=== PATIENT | female | born 1985 | race Caucasian/White ===

== ENCOUNTER 2022-07-15 12:57 | Emergency (ER) | payer OTHER, SELFPAY ==
[2022-07-15 13:08] VITALS: BP 138/78; PULSE 97; RESP 16; TEMP 36.6; O2SAT 98
--- NOTE | 2022-07-15 13:16 | ED.URI ---
HPI - URI/Sore Throat General Chief Complaint: Upper Respiratory Infection Stated Complaint: Sinus Congestion Time Seen by Provider: 07/15/22 13:16 Source: patient and RN notes reviewed Mode of arrival: ambulatory Limitations: no limitations History of Present Illness HPI Narrative: 37-year-old female presents with concern for sore throat, ear pain and sinus congestion that started yesterday. Reports her was diagnosed with strep throat yesterday. She denies fever, aches, chills, sweats. Reports she had a stomachache yesterday. MD elicited complaint: sore throat and nasal congestion Related Data Allergies Allergy/AdvReac Type Severity Reaction Status Date / Time No Known Allergies Allergy Verified 07/15/22 13:22 Review of Systems Review of Systems: CONSTITUTIONAL: Reports malaise. Denies chills, sweats, or fever. EYES: Denies visual changes, redness, or discharge. ENT: Reports rhinorrhea, congestion, sore throat. Denies sinus pain, otalgia CARDIOVASCULAR: Denies chest pain, palpitations, or edema. RESPIRATORY: Denies cough. Denies dyspnea. GASTROINTESTINAL: Denies abdominal pain, nausea, vomiting, diarrhea. Reports stomach ache SKIN: Denies rash or itching. MUSCULOSKELETAL: Denies myalgia. NEUROLOGIC: Denies headache. All systems reviewed & are unremarkable except as noted in HPI and below PMFSH Comments At time of signature, agree with nursing past medical, surgical, social and family history. There is no relevant family history pertinent to the presenting complaint Exam Narrative: GENERAL: Well-appearing, well-nourished, and in no acute distress. HEAD: Normocephalic EYES: PERRLA, conjunctivae clear ENT: Nares clear, turbinates edematous and erythematous, clear discharge. Mucous membranes moist. TM pearly rutherford with dull light reflex bilaterally; no tragal tenderness. Oropharynx erythematous without lesions. Tonsils enlarged and without exudate, no drooling, no hoarseness, no trismus, uvula midline. NECK: Supple. No lymphadenopathy CHEST: Clear to auscultation, breath sounds equal. No wheezing, rhonchi, rales, or stridor. No respiratory distress, speaks in full sentences. HEART: Regular rate and rhythm. No murmur heard. SKIN: Warm, dry, no rash. NEURO: Alert and oriented x3. PSYCH: Normal mood and affect Course Course Emergency Course: Patient is aware of diagnosis, understands and agrees to treatment plan. Anticipatory guidance given. Patient agrees to follow-up as directed and is aware of reasons to seek care at the emergency department. Portions of this record may have been created with voice recognition software Level of Care: Express Care Visit Vital Signs Vital signs: Vital Signs Temperature 97.8 F 07/15/22 13:08 Pulse Rate 97 07/15/22 13:08 Respiratory Rate 16 07/15/22 13:08 Blood Pressure 138/78 07/15/22 13:08 Pulse Oximetry 98 07/15/22 13:08 Oxygen Delivery Room Air 07/15/22 13:08 Temperature 97.8 F 07/15/22 13:08 Pulse Rate 97 07/15/22 13:08 Respiratory Rate 16 07/15/22 13:08 Blood Pressure 138/78 07/15/22 13:08 Pulse Oximetry 98 07/15/22 13:08 Oxygen Delivery Room Air 07/15/22 13:08 Reviewed. MDM - URI/Sore Throat MDM Narrative Medical decision making narrative: Differential diagnosis considered: Thayer virus, strep pharyngitis, allergic rhinitis, upper respiratory tract infection, sinusitis, rhinosinusitis, nasopharyngitis. viral pharyngitis, otitis media, otitis externa, pneumonia, bronchitis, viral cough syndrome, viral syndrome, and influenza. Exam findings show no acute concerns or changes; patient is non-toxic appearing and is in no distress. Patient is appropriate for outpatient treatment and follow-up. Lab Data Attestation: I reviewed the patient's lab results. Critical Care Time Critical Care Time Critical Care Time: No Discharge Plan Discharge Clinical Impression: Pharyngitis, Exposure to strep throat Patient Dispos
== END 2022-07-15 13:37 | disposition home or self-care (01) ==
PROVIDERS: Emergency Provider Nurse Practitioner; PCP Family Medicine
DX: J02.9 Acute pharyngitis, unspecified (principal); Z20.818 Contact with and (suspected) exposure to other bacterial communicable diseases
CPT/HCPCS: 87081; 87880; 99213; G0463

== ENCOUNTER 2023-02-03 16:24 | Emergency (ER) | payer OTHER, SELFPAY ==
[2023-02-03 16:30] VITALS: BP 151/104; PULSE 89; RESP 20; TEMP 37.3; O2SAT 100
--- NOTE | 2023-02-03 16:34 | ED.URI ---
HPI - URI/Sore Throat General Chief Complaint: Upper Respiratory Infection Stated Complaint: swelling/tender around neck Time Seen by Provider: 02/03/23 16:34 Source: patient, RN notes reviewed and old records reviewed Mode of arrival: ambulatory Limitations: no limitations History of Present Illness HPI Narrative: 37 year old female who presents to express care with complaints of feeling a lump in her throat with tenderness.Patient states that it doesn't feel like it is on the inside of her throat and denies any sore throat, sinus drainage or any known fevers. Patient reports that it feels funny with swallowing. Patient indicates that lump is in her anterior neck in area of thyroid gland with palpable swelling and tenderness of left side of thyroid region. Patient reports no thyroid problems in the past. Patient reports that she called her doctor's office and the soonest she could be seen is in March. Patient reports that she has been able to eat and drink, has not experienced any MD elicited complaint: other (left anterior neck swelling and tenderness) Onset (ago): day(s) (2-3 days) Pain scale (0-10): 3 Able to tolerate fluids by mouth: Yes Treatments prior to arrival: none Related Data Allergies Allergy/AdvReac Type Severity Reaction Status Date / Time No Known Allergies Allergy Verified 07/15/22 13:22 Review of Systems Review of Systems: CONSTITUTIONAL: Denies fever, chills, or sweats. EYES: Denies visual changes, redness, or discharge. ENT: Denies rhinorrhea, congestion, sore throat, or otalgia.reports swelling and tenderness to left anterior neck with discomfort CARDIOVASCULAR: Denies chest pain, palpitations, or edema. RESPIRATORY: Denies cough or dyspnea. GASTROINTESTINAL: Denies abdominal pain, nausea, vomiting, or diarrhea. GENITOURINARY: Denies dysuria or hematuria. SKIN: Denies rash or itching. MUSCULOSKELETAL: Denies back pain, joint pain, or myalgia. NEUROLOGIC: Denies headache, numbness, or weakness. PSYCHIATRIC: Denies anxiety or depression. All systems reviewed & are unremarkable except as noted in HPI and below [facility] Social History Social History (Updated 02/04/23 @ 11:12 by Sara Hammond NP) Living arrangements: with family Gender identity (if verbalized by the patient): Female Comments At time of signature, agree with nursing past medical, surgical, social and family history. There is no relevant family history pertinent to the presenting complaint Exam Narrative: GENERAL: Well-appearing, well-nourished, and in no acute distress. HEAD: Normocephalic, atraumatic. EYES: PERRLA and EOMI. ENT: Nares clear, no rhinorrhea or epistaxis. Mucous membranes moist.TM's normal throat pink with no lesions or exudates. NECK: Supple. fullness of left side of thyroid gland noted with tenderness on palpation CHEST: Clear to auscultation. No respiratory distress.SAO2 100% on room air HEART: Regular rate and rhythm. No murmur heard. Normal peripheral pulses. ABDOMEN: Soft, nontender, nondistended, normal active bowel sounds. EXTREMITIES: Normal range of motion. No edema. SKIN: Warm, dry, no rash. NEURO: No focal deficits. Alert and oriented x3. Course Course Emergency Course: Patient is aware of diagnosis, understands and agrees to treatment plan.? Anticipatory guidance given.? Patient agrees to follow-up as directed and is aware of reasons to seek care at the emergency department. Portions of this record may have been created with voice recognition software Level of Care: Express Care Visit Vital Signs Vital signs: Vital Signs Temperature 37.3 C 02/03/23 16:30 Pulse Rate 89 02/03/23 16:30 Respiratory Rate 02/03/23 16:30 Blood Pressure 151/104 H 02/03/23 16:30 Pulse Oximetry 100 02/03/23 16:30 Oxygen Delivery Room Air 02/03/23 16:30 Temperature 37.3 C 02/03/23 16:30 Pulse Rate 89 02/03/23 16:30 Respiratory Rate 02/03/23 16:30 Blood Pressure 128/84 /
[2023-02-03 16:40] VITALS: BP 128/84
== END 2023-02-03 17:04 | disposition home or self-care (01) ==
PROVIDERS: Emergency Provider Registered Nurse; PCP Family Medicine
DX: E04.9 Nontoxic goiter, unspecified (principal)
CPT/HCPCS: 99211; G0463

== ENCOUNTER 2024-09-17 08:52 | Emergency (ER) | payer OTHER, SELFPAY ==
--- OUTSIDE RECORDS SUMMARY | 2024-09-17 08:57 | XMS_ITS | Clinical Summary ---
Author Organization [facility] [address] Address [address] [place] [address] Phone Care Team Providers Care Clinical Transplant Coordinator Name Role Phone Tevin Jarvis MD Primary Care Provider [phone] Allergies No known active allergies Medications sertraline (ZOLOFT) 50 mg tablet Take 1 tablet (50 mg total) by mouth daily 90 tablet 1 3 Active Additional Information Patient not taking.Reported on 05/15/2024 busPIRone (BUSPAR) 5 mg tabletIndicatio ns:Anxiety Take 1 tablet (5 mg total) by mouth 2 (two) times a day as needed (anxiety) 60 tablet 2 3 Active triamcinolone (KENALOG) 0.1 % cream Apply to affected area 1-2 times daily as needed. Avoid face and groin. 80 g 5 4 Active Additional Information Patient not taking.Reported on 05/15/2024 tacrolimus (PROTOPIC) 0.1 % ointment Apply topically 2 (two) times a day Active clobetasoL (TEMOVATE) 0.05 % cream Apply topically 2 (two) times a day Active spironolactone (ALDACTONE) 100 mg tablet Take 1 tablet (100 mg total) by mouth daily Active Active Problems Problem Noted Date Diagnosed Date Annual physical exam 05/15/2024 Assessment & Plan (05/15/2024 4:13 PM SOCK LINING STITCHER): In regard to health maintenance, Mammogram utd WWE utd Eat a healthy diet: focus on lean meats and proteins, more fruits, vegetables and whole grains and low in sugars and fats. Limit red meat and avoid processed meat. Maintain a healthy weight; avoid being overweight. Aim for a normal body mass index (BMI) of 18.5-24.9. Help learning to eat healthier, we can set up appointment with supervisor lamp shades/retirement specialist. Have an active lifestyle, strive for 30 minutes of moderate exercise 5 times a week and strength or resistance training at least twice a week. Use broad-spectrum (UVA+UVB) sunscreen with SPF 30 or greater, is water resistant, limit time spent in the sun (10 am-4pm), wear hat, wear UV protective clothing, wear sunglasses. Never use a tanning bed. Skin that was irradiated may be more sensitive over your lifetime. Do not smoke or chew tobacco; participate in a smoking cessation program. Limit alcohol intake, 1 drink per day for a woman and 2 drinks per day for a man. Eczema 05/12/2023 Assessment & Plan (05/15/2024 4:34 PM SOCK LINING STITCHER): Improving with clobetasol, tacrolimus. Continue following with Dermatology. Assessment & Plan (05/12/2023 3:24 PM SOCK LINING STITCHER): Will initiate Medrol Dosepak and also send in triamcinolone cream to use thereafter. Continue with excellent moisturization. Will place referral to Dermatology to schedule if not improving. RTC for any signs of secondary infection. Class 2 severe obesity due t o excess calories with serious comorbidity and body mass index (BMI) of 37.0 to 37.9 in adult 05/12/2023 Enlarged thyroid gland 04/22/2023 Thyroid pain 04/22/2023 Thyroid nodule 03/16/2023 Assessment & Plan (03/21/2024 3:42 PM SOCK LINING STITCHER): Very significantly shrunk, as per ultrasound done today Follow-up in 2 3 years recommended Update TSH Assessment & Plan (05/12/2023 3:23 PM SOCK LINING STITCHER): Benign biopsy. Monitor for any changes. Continue following with endocrinology. Red flags reviewed. Assessment & Plan (03/16/2023 3:52 PM SOCK LINING STITCHER): I looked at Mrs. Albarran thyroid under our ultrasound machine. She has a left-sided 2.5 cm nodule, again mixed, with some solid component, probably with some microcalcifications. The right side of the thyroid looks very normal as well as the isthmus I explained to the patient that she probably had bleeding into a left thyroid cyst that caused the initial tenderness, now subsided . She has indication for an FNA biopsy. The patient has agreed and she is scheduled Refused influenza vaccine 04/14/2021 Class 2 obesity due to exces s calories without serious comorbidity with body mass index (BMI) of 37.0 to 37.9 in adult 04/14/2021 Assessment & Plan (04/14/2021 5:39 PM SOCK LINING STITCHER): Discussed healthy diet and importance of regular physical activity. Strain of groin, right, initial encounter 2020 Assessment & Plan (04/14/2021 5:38 PM SOCK LINING STITCHER): Pain is mild, no abnormal findings on exam. Will continue to monitor. Patient agreeable to watchful waiting, will notify office if pain worsens or does not improve, will plan for US. Encounter for screening for lipid disorder 04/14 Assessment & Plan (04/14/2021 5:40 PM SOCK LINING STITCHER): Will check fasting labs. Anxiety disorder 12/12/2020 Assessment & Plan (05/12/2023 3:23 PM SOCK LINING STITCHER): Reports currently stable without medication treatment. Will continue to monitor. Assessment & Plan (04/14/2021 5:40 PM SOCK LINING STITCHER): Worsening; sertraline increased. Discussed increasing buspirone to 10mg BID if tolerated.Reviewed med Ses & scheduling. Reviewed red flags. Obesity with body mass index 30 or greater 08/07 Overview (08/11/2016): BMI 30+ - obesity Rhinitis 06/25/2014 Overview (08/12/2016): Rhinitis Polycystic ovaries 09/22/2013 Overview (08/11/2016): PCO (polycystic ovaries) Depression 04/03/2013 Overview (08/12/2016): Depression Resolved Problems Problem Noted Date Diagnosed Date Resolved Date Pharyngitis 04/22/2023 04/22/2023 Immunizations Immunization Administration Dates Next Due HPV, Quadrivalent 03/11/2011,11/17/2010,09/17/19 11 Influenza, Unspecified 05/15/2024(Deferr ed: Patient Refused),02/09/2023(Deferred: Patient Refused),02/09/2023(Deferred: Patient Refused),02/01/2022(Deferred: Patient Refused),05/22/2021(Deferred: Patient Refused),01/07/2021(Deferred: Patient Refused),09/09/2020(Deferred: Patient Refused),03/11/2020(Deferred: Patient Refused),05/09/2019(Deferred: Patient Refused),05/09/2019(Deferred: Patient Refused) [employer] ([employer]) SARS-CoV-2 Vaccination 07/17/2020 Moderna SARS-CoV-2 Monovalen t Vaccination (12+ YRS) 2021 Pfizer Sars-Cov-2 Bivalent Vaccination (12+ YRS) 02/27/2022 Tdap 09/16/2010 Surgical History Surgery Date Site/Laterality Comments WISDOM TOOTH EXTRACTION 05/09/2001 - 05/08/2002 Medical History Medical History Date Comments GERD (gastroesophageal reflux disease) Smoking previous smoker Pharyngitis 04/22/2023 Family History Medical History Relation Name Comments Hypertension Father Hema 'Reginald' Rowley Hypertension ; Coronary artery disease Maternal Grandfather Dereje tomlinson sr Coronary artery disease, premature; Cause of : Coronary artery disease, premature Heart attack Maternal Grandfather Dereje Piedra sr Diabetes Maternal Grandmother Betsy Tadeo Diabetes type II Maternal Grandmother Betsy Tadeo Breast cancer Mother Diabetes type II Paternal Grandfather Bucky Rowley Hypertension Paternal Grandfather Bucky Rowley Relation Name Status Comments Brother 1 Alive Brother 2 Father Hema 'Reginald' Rowley Alive Maternal Grandfather Dereje Piedra sr (Age 65) Maternal Grandmother Betsy Piedra Mother Alive Paternal Grandfather Bucky Rowley Social History Tobacco Use Types Packs/Day Years Used Date Smoking Tobacco: Former Cigarettes 0.5 18 0 05/09/1999 - 05/09/2017 E-cigarettes Smokeless Tobacco: Never Tobacco Cessation:Counseling Given: Not Answered Comments:Smoking History Packs/day: 0.5 Packs Alcohol Use Standard Drinks/Week Comments Yes 0 (1 standard drink = 0.6 oz pur e alcohol) AUDIT-C Answer Date Recorded Q1: How often do you have a drink containing alcohol? Never 03/21/2024 Q2: How many drinks containi ng alcohol do you have on a typical day when you are drinking? Patient does not drink Q3: How often do you have si x or more drinks on one occasion? 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 Not on file Not on file Obstetrics History Para Term AB IAB SAB Ectopic Multiple Livin g Live Births 0 0 0 0 0 0 0 0 0 0 0 Last Filed Vital Signs Vital Sign Reading Time Taken Comments Blood Pressure 124/78 05/15/2024 3:48 PM SOCK LINING STITCHER Pulse 91 05/15/2024 3:48 PM SOCK LINING STITCHER Temperature 36.3 C (97.4 F) 05/15/2024 3:48 PM SOCK LINING STITCHER Respiratory Rate 20 05/15/2024 3:48 PM SOCK LINING STITCHER Oxygen Saturation 99% 05/15/2024 3:48 PM SOCK LINING STITCHER Inhaled Oxygen Concentration - - Weight 102 kg (224 lb 12.8 oz) 05/15/2024 3:48 P M SOCK LINING STITCHER Height 162.6 cm (5' 4.02 ) 05/15/2024 3:48 PM CS T Body Mass Index 38.57 05/15/2024 3:48 PM SOCK LINING STITCHER Plan of Treatment Health Maintenance Due Date Last Done Comments Hepatitis C Screening 1985 Hepatitis B Screening 2003 DTaP/Tdap/Td Vaccine (2 - Td or Tdap) 09/16/2020 09/16/2010 Cervical Cancer Screening 12/12/2021 12/12/2020 Covid-19 Vaccine ( season) 2024 02/27/2022, 2021, 07/17/2020 Influenza Vaccine (#1) 2024 Postp oned from 01/08/2024 (Patient declined, but will receive in the future) Depression Screening 05/15/2025 05/15/2024, 03/21/2024, 03/16/2023, Additional history exists Regular Well Visit/Exam 18-64 05/15/2025 05/15/2024, 01/06/2024, 12/24/2022, Additional history exists HPV Vaccines Completed 03/11/2011, 11/06, 09/16/2010 Pneumococcal vaccine <65 Aged Out No longer eligible based on patient's age to complete this topic Varicella Vaccines Discontinued Procedures Procedure Name Priority Date/Time Associated Diagnosis Comments IMAGING PAP AND HPV MRNA E6/E7 Routine 12/12/2020 12:00 AM CDT from Last 3 Months or Most Recently Relevant to Health Maintenance Results * Imaging Pap and HPV mRNA E6/E7 (12/12/2020 12:00 AM CDT) CLINICAL INFORMATION: [employer] [facility] Comment[facility]22/20 Previous Pap [employer] [facility] Comment:YES Prev. Bx [employer] [facility] Comment:INFORMATION NOT PROV IDED SOURCE: [employer] [facility] Comment:Cervix, Endocervix Pap, specimen adequacy [employer] [facility] Comment: Satisfactory for evaluation. Endocervical/transformation zone component absent. HPV interp [employer] [facility] Comment:Negative for intraep ithelial lesion or malignancy. COMMENTS [employer] [facility] Comment: This Pap test has been evaluated with computer assisted technology. Software Validation Technician [employer] [facility] Comment: BEF, CT(ASCP) CT screening location: [place] [address] [place] [address] Comment [employer] [facility] Comment: EXPLANATORY NOTE: The Pap is a screening test for cervical cancer. It is not a diagnostic test and is subject to false negative and false positive results. It is most reliable when a satisfactory sample, regularly obtained, is submitted with relevant clinical findings and history, and when the Pap result is evaluated along with historic and current clinical information. Human papillomavirus RNA, High Risk E6/E7 Not Detected Not Detected [employer] Comment: Methodology: Farmer [employer]-Mediated Amplification This assay detects E6/E7 viral messenger RNA (mRNA) from 14 high-risk HPV types (16,18,31,33,35,39,45,51,52,56,58,59,66,68). The analytical performance characteristics of this assay have been determined by [employer]. The modifications have not been cleared or approved by the FDA. This assay has been validated pursuant to the CLIA regulations and is used for clinical purposes. For additional information, please refer to http://education.Who-Sells-it.com/faq/VOD546d4 (This link if provided for information/ educational purposes only.) 12/12/2020 12/15/2020 11: 00 AM CDT Narrative [facility] - 12/16/2020 1:00 PM CDT FASTING: UNKNOWN Hanh Ivan MD LAB PATHOLOGY ORDERAB LES Final Result [facility] [address] [place] [address] [employer] [address] [place] [address] from Last 3 Months or Most Recently Relevant to Health Maintenance Insurance [facility]PPO Address: [address] [place] [address] [facility] CHOICE PLUS COMMERCIAL GENERIC [facility] CHOICE PLUS Care Teams Clinical Transplant Coordinator Relationship Specialty Start Date End Date Tevin Jarvis MD [address] [place] [address] PCP - General Family Medicine 03/11/20
--- OUTSIDE RECORDS SUMMARY | 2024-09-17 08:57 | XMS_ITS | Patient Health Record ---
Author Organization [facility] Address [address] [place] [address] Care Team Providers Care Engine Assembly Supervisor Name Role Phone Mariaa FRY, Beata Primary Care Provider Betina CarrollCarisa Unavailable [phone] Allergies No Known Allergies Reason For Referral No Information Medications Medication SIG (Take, Route, Fr equency, Duration) Notes Start Date End Date Status Omeprazole 20 MG take 1 capsule (20 m g) by oral route once daily before a meal Oral 1 Active Sertraline HCl 50 MG take 1 tablet (50 m g) by oral route once daily Oral 1 Active busPIRone HCl 5 MG take 1 tablet (5 mg) by oral route 2 times per day Oral 2 Act bella Plan Of Treatment No Information Insurance Providers Payer Name Payer Address Payer Phone Subscriber Number Group Number Insured Name Patient Relationship to Insured Coverage Start Date Coverage End Date DO NOT USE- use ins id# [id number] Lana Albarran Self - patient is the insured Medical (General) History Surgical History Surgery Date(Month/Year) [place] Tooth Extraction; 2021-06-09
--- OUTSIDE RECORDS SUMMARY | 2024-09-17 08:57 | XMS_ITS | Referral Summary ---
Author Organization [facility] [employer] Address [address] [place] [address] Phone Care Team Providers Care Mobile Designer Name Role Phone Tevin Jarvis MD Primary Care Provider [phone] Allergies No known active allergies Medications sertraline [...] 05/15/2024 Assessment & Plan (05/15/2024 4:13 PM DIRECTOR OF REVENUE CYCLE MANAGEMENT): In regard to health maintenance, Mammogram utd [...] healthier, we can set up appointment with import/export analyst/service electrician. Have an active lifestyle, strive for 30 [...] 05/12/2023 Assessment & Plan (05/15/2024 4:34 PM DIRECTOR OF REVENUE CYCLE MANAGEMENT): Improving with clobetasol, tacrolimus. Continue following with Dermatology. Assessment & Plan (05/12/2023 3:24 PM DIRECTOR OF REVENUE CYCLE MANAGEMENT): Will initiate Medrol Dosepak and also send [...] 03/16/2023 Assessment & Plan (03/21/2024 3:42 PM DIRECTOR OF REVENUE CYCLE MANAGEMENT): Very significantly shrunk, as per ultrasound done today Follow-up in 2 3 years recommended Update TSH Assessment & Plan (05/12/2023 3:23 PM DIRECTOR OF REVENUE CYCLE MANAGEMENT): Benign biopsy. Monitor for any changes. Continue following with endocrinology. Red flags reviewed. Assessment & Plan (03/16/2023 3:52 PM DIRECTOR OF REVENUE CYCLE MANAGEMENT): I looked at Mrs. Albarran thyroid under [...] 04/14/2021 Assessment & Plan (04/14/2021 5:39 PM DIRECTOR OF REVENUE CYCLE MANAGEMENT): Discussed healthy diet and importance of regular physical activity. Strain of groin, right, initial encounter 2020 Assessment & Plan (04/14/2021 5:38 PM DIRECTOR OF REVENUE CYCLE MANAGEMENT): Pain is mild, no abnormal findings on exam. Will continue to monitor. Patient agreeable to watchful waiting, will notify office if pain worsens or does not improve, will plan for US. Encounter for screening for lipid disorder 04/14 Assessment & Plan (04/14/2021 5:40 PM DIRECTOR OF REVENUE CYCLE MANAGEMENT): Will check fasting labs. Anxiety disorder 12/12/2020 Assessment & Plan (05/12/2023 3:23 PM DIRECTOR OF REVENUE CYCLE MANAGEMENT): Reports currently stable without medication treatment. Will continue to monitor. Assessment & Plan (04/14/2021 5:40 PM DIRECTOR OF REVENUE CYCLE MANAGEMENT): Worsening; sertraline increased. Discussed increasing buspirone to [...] Refused),03/11/2020(Deferred: Patient Refused),05/09/2019(Deferred: Patient Refused),05/09/2019(Deferred: Patient Refused) Sticky[employer]tv (J&J) SARS-CoV-2 Vaccination 07/17/2020 Moderna SARS-CoV-2 Monovalen t Vaccination (12+ YRS) 2021 Pfizer Sars-Cov-2 Bivalent Vaccination (12+ YRS) 02/27/2022 Tdap 09/16/2010 Social History Tobacco Use Types Packs/Day Years [...] on file Legal Sex Female 10:01 AM DIRECTOR OF REVENUE CYCLE MANAGEMENT Gender Identity Female 03/15/2023 7:53 PM DIRECTOR OF REVENUE CYCLE MANAGEMENT Sexual Orientation Straight 03/21/2024 3: 12 PM DIRECTOR OF REVENUE CYCLE MANAGEMENT Occupation Industry Job Start Date Job End Date Not on file Not on file Not on file 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6 cm (5' 4.02 ) 05/15/2024 3:48 PM CS T Body Mass Index 38.57 05/15/2024 3:48 PM DIRECTOR OF REVENUE CYCLE MANAGEMENT Plan of Treatment Not on file Procedures Procedure Name Priority Date/Time Associated Diagnosis Comments IMAGING PAP AND HPV MRNA E6/E7 Routine 12/12/2020 12:00 AM CDT from Last 3 Months or Most Recently Relevant to Health Maintenance Results * Imaging Pap and HPV mRNA E6/E7 (12/12/2020 12:00 AM CDT) CLINICAL INFORMATION: [facility] Comment:Routine exam LMP [facility] Comment:11/22/20 Previous Pap [facility] Comment:YES Prev. Bx [facility] Comment:INFORMATION NOT PROV IDED SOURCE: [facility] Comment:Cervix, Endocervix Pap, specimen adequacy [facility] Comment: Satisfactory for evaluation. Endocervical/transformation zone component absent. HPV interp [facility] Comment:Negative for intraep ithelial lesion or malignancy. COMMENTS [facility] Comment: This Pap test has been evaluated with computer assisted technology. Government Program Manager Kiran [facility] Comment: BEF, CT(ASCP) CT screening location: [place] [address] Administration MICHAEL Hicks [id number] Comment [facility] Comment: EXPLANATORY NOTE: The Pap is a [...] High Risk E6/E7 Not Detected Not Detected [facility] Comment: Methodology: Chili Pepper Grinder-Mediated Amplification This assay detects E6/E7 viral messenger RNA (mRNA) from 14 high-risk HPV types (16,18,31,33,35,39,45,51,52,56,58,59,66,68). The analytical performance characteristics of this assay have been determined by [facility]. The modifications have not been cleared or approved by the FDA. This assay has been validated pursuant to the CLIA regulations and is used for clinical purposes. For additional information, please refer to http://education.Prescreen/faq/CPO926q5 (This link if provided for information/ educational purposes only.) 12/12/2020 12/15/2020 11: 00 AM CDT Narrative [facility] - 12/16/2020 1:00 PM CDT FASTING: UNKNOWN Hanh Ivan MD LAB PATHOLOGY ORDERAB LES Final Result [place] [address] Administration MICHAEL Carlson [phone] [facility] [address] [place] [address] from Last 3 Months or Most Recently Relevant to Health Maintenance Insurance [facility] CHOICE PLUS COMMERCIAL GENERIC [facility] CHOICE PLUS Care Teams Mobile Designer Relationship Specialty Start Date End Date Tevin Jarvis MD [address] [place] [address] PCP - General Family Medicine 03/11/20
[2024-09-17 09:04] VITALS: BP 144/95; PULSE 78; RESP 20; TEMP 36.4; O2SAT 99
--- NOTE | 2024-09-17 09:16 | ED.URI ---
HPI - URI/Sore Throat General Chief Complaint: Upper Respiratory Infection Stated Complaint: cold symptoms Time Seen by Provider: 09/17/24 09:16 Source: patient, RN notes reviewed and old records reviewed Mode of arrival: ambulatory Limitations: no limitations History of Present Illness HPI Narrative: 39 year old female who presents to [facility] care with complaints of 3-4 day history of cough, sneezing, sinus congestion, hoarseness and some sore throat. Patient reports that she has had no fever but feels warm. Patient reports that cough is nonproductive and frequent. patient states that she has been taking Mucinex without improvement in her symptoms. MD elicited complaint: cough, sore throat, rhinorrhea, nasal congestion and other (hoarseness) Pertinent past history: other (thyroid cyst,) Onset (ago): day(s) (3-4 days) Consistency: constant Severity: moderate Able to tolerate fluids by mouth: Yes Treatments prior to arrival: other (mucinex) Related Data Home Medications ?Medication ?Instructions ?Recorded ?Confirmed ?Last Taken ?Type buspirone 5 mg tablet mg 09/17/24 Unknown History clobetasol 0.05 % topical cream topical 09/17/24 Unknown History spironolactone 100 mg tablet mg 09/17/24 Unknown History Allergies Allergy/AdvReac Type Severity Reaction Status Date / Time No Known Allergies Allergy Verified 07/15/22 13:22 Review of Systems Review of Systems: CONSTITUTIONAL: Reports malaise,no chills, sweats, or fever. EYES: Denies visual changes, redness, or discharge. ENT: Reports rhinorrhea, congestion,no sinus pain,no otalgia and positive for sore throat. CARDIOVASCULAR: Denies chest pain, palpitations, or edema. RESPIRATORY: Reports cough.? Denies dyspnea. GASTROINTESTINAL: Denies abdominal pain, + nausea,no vomiting, no diarrhea SKIN: Denies rash or itching. MUSCULOSKELETAL: Denies myalgia. NEUROLOGIC: Denies headache. All systems reviewed & are unremarkable except as noted in HPI and below PMFSH Past Medical History Medical History (Updated 09/17/24 @ 09:40 by Sara Hammond NP) Benign thyroid cyst Social History Social History (Updated 09/17/24 @ 09:33 by Sara Hammond NP) Smoking status: Never smoker Alcohol intake: current Alcohol use details: social Substance use type: does not use Living arrangements: with family Gender identity (if verbalized by the patient): Female Comments At time of signature, agree with nursing past medical, surgical, social and family history. There is no relevant family history pertinent to the presenting complaint Exam Narrative: GENERAL: Well-appearing, well-nourished, and in no acute distress. HEAD: Normocephalic EYES: PERRLA, conjunctivae clear ENT: Nares clear, turbinates edematous and erythematous, clear discharge. Mucous membranes moist. TM pearly rutherford with dull light reflex bilaterally; no tragal tenderness. Oropharynx erythematous without lesions. Tonsils enlarged and with white exudate left tonsil noted, no drooling, + hoarseness, no trismus, uvula midline. NECK: Supple. No lymphadenopathy CHEST: Clear to auscultation, breath sounds equal. No wheezing, rhonchi, rales, or stridor. No respiratory distress, speaks in full sentences. frequent dry cough noted SAO2 99% on room air HEART: Regular rate and rhythm. No murmur heard. SKIN: Warm, dry, no rash. NEURO: Alert and oriented x3. PSYCH: Normal mood and affect Course Course Emergency Course: Patient is aware of diagnosis, understands and agrees to treatment plan.? Anticipatory guidance given.? Patient agrees to follow-up as directed and is aware of reasons to seek care at the emergency department. Portions of this record may have been created with voice recognition software Level of Care: Express Care Visit Vital Signs Vital signs: Vital Signs Temperature 36.4 C 09/17/24 09:04 Pulse Rate 78 09/17/24 09:04 Respiratory Rate 20 09/17/24 09:04 Blood Pressure 144/95 H 09/17/24 09:04 Pulse Oximetry 99 09/17/24 09:04 Oxygen Delivery Room Air 09/17/24 09:04 Temperature 36.4 C 09/17/24 09:04 Pulse Rate 78 09/17/24 09:04 Respiratory Rate 20 09/17/24 09:04 Blood Pressure 144/95 H 09/17/24 09:04 Pulse Oximetry 99 09/17/24 09:04 Oxygen Delivery Room Air 09/17/24 09:04 Reviewed MDM - URI/Sore Throat MDM Narrative Medical decision making narrative: Differential diagnosis considered: Thayer virus, strep pharyngitis, allergic rhinitis, upper respiratory tract infection, sinusitis, rhinosinusitis, nasopharyngitis. viral pharyngitis, otitis media, otitis externa, pneumonia, bronchitis, viral cough syndrome, viral syndrome, and influenza.? Exam findings show no acute concerns or changes; patient is non-toxic appearing and is in no distress.? Patient is appropriate for outpatient treatment and follow-up. Differential Diagnosis Differential diagnosis: Likely upper respiratory infection, sinusitis, viral infection, pharyngitis and other (strep pharyngitis, acute cough) Medical Records Attestation: I reviewed the patient's medical records. Lab Data Attestation: I reviewed the patient's lab results. Lab results narrative: strep screen negative, strep culture sent Labs: Lab Results 09/17/24 Range/Units 09:24 POC Grp A Strep Screen Negative (Negative) reviewed Critical Care Time Critical Care Time Critical Care Time: No Discharge Plan Discharge Clinical Impression: Upper respiratory infection with cough and congestion Patient Disposition: Home Condition: Stable Instructions: Antibiotic Form, Upper Respiratory Infection (ED), Acute Cough (ED) Additional Instructions: Increase fluids especially juices and water Mpuk-ggs-byulfdt cough and cold medicine of your choice for your symptoms Zyrtec Claritin or Bonnie daily may include Coricidin decongestant Steroids as directed--take with food heat to the face 20-30 minutes 4-6 times a day for pain Salt water gargles, throat lozenges or throat sprays as desired Antibiotic as directed--finished the medication If your symptoms persist, change or worsen significantly before you can contact your personal physician then please, without delay, go to the emergency department for further evaluation. Follow-up with PCP in 7-10 days or sooner if needed Follow up with PCP soon in regards to your blood pressure which is elevated above threshold for referral. Blood pressure above 120/80 may indicate pre-hypertension. 144/95 Continue your daily Mucinex Patient Language: Maltese Prescriptions: New amoxicillin 875 mg tablet 875 mg PO Q12H Qty: 20 0RF Rx Instructions: take with food take all doses of antibiotic prednisone 20 mg tablet 40 mg PO DAILY Qty: 10 0RF No Action buspirone 5 mg tablet spironolactone 100 mg tablet clobetasol 0.05 % cream TOPICAL Follow-up/Referrals: Harms,Tevin Alvarez M.D. [Primary Care Provider] - Time of Disposition: 09:41 Quality Geovanny Coma Scale Eyes: Open Verbal: Oriented and Alert Motor: Follows Commands Geovanny Coma Total Score: 15
[2024-09-17 09:35] LABS: EDSTREPNEGPOS1 Negative (Negative)
== END 2024-09-17 09:47 | disposition home or self-care (01) ==
PROVIDERS: Emergency Provider Registered Nurse; PCP Family Medicine
DX: J06.9 Acute upper respiratory infection, unspecified (principal); R05.9 Cough, unspecified
CPT/HCPCS: 87081; 87880; 99213; G0463

== ENCOUNTER 2024-11-19 15:16 | Emergency (ER) | payer OTHER, SELFPAY ==
--- OUTSIDE RECORDS SUMMARY | 2024-11-19 15:18 | XMS_ITS | Clinical Summary ---
Author Organization [facility] [employer] Address [address] [place] [address] Phone Care Team Providers Care Mortuary Operations Manager Name Role Phone Tevin Jarvis MD Primary Care Provider [phone] Allergies No known active allergies Medications sertraline [...] 05/15/2024 Assessment & Plan (05/15/2024 4:13 PM WORK FROM HOME): In regard to health maintenance, Mammogram utd [...] healthier, we can set up appointment with marketing underwriter/athletics teacher. Have an active lifestyle, strive for 30 [...] 05/12/2023 Assessment & Plan (05/15/2024 4:34 PM WORK FROM HOME): Improving with clobetasol, tacrolimus. Continue following with Dermatology. Assessment & Plan (05/12/2023 3:24 PM WORK FROM HOME): Will initiate Medrol Dosepak and also send [...] 03/16/2023 Assessment & Plan (03/21/2024 3:42 PM WORK FROM HOME): Very significantly shrunk, as per ultrasound done today Follow-up in 2 3 years recommended Update TSH Assessment & Plan (05/12/2023 3:23 PM WORK FROM HOME): Benign biopsy. Monitor for any changes. Continue following with endocrinology. Red flags reviewed. Assessment & Plan (03/16/2023 3:52 PM WORK FROM HOME): I looked at Mrs. Albarran thyroid under [...] 04/14/2021 Assessment & Plan (04/14/2021 5:39 PM WORK FROM HOME): Discussed healthy diet and importance of regular physical activity. Strain of groin, right, initial encounter 2020 Assessment & Plan (04/14/2021 5:38 PM WORK FROM HOME): Pain is mild, no abnormal findings on exam. Will continue to monitor. Patient agreeable to watchful waiting, will notify office if pain worsens or does not improve, will plan for US. Encounter for screening for lipid disorder 04/14 Assessment & Plan (04/14/2021 5:40 PM WORK FROM HOME): Will check fasting labs. Anxiety disorder 12/12/2020 Assessment & Plan (05/12/2023 3:23 PM WORK FROM HOME): Reports currently stable without medication treatment. Will continue to monitor. Assessment & Plan (04/14/2021 5:40 PM WORK FROM HOME): Worsening; sertraline increased. Discussed increasing buspirone to [...] Refused),03/11/2020(Deferred: Patient Refused),05/09/2019(Deferred: Patient Refused),05/09/2019(Deferred: Patient Refused) [employer] (J&J) SARS-CoV-2 Vaccination 07/17/2020 Moderna SARS-CoV-2 Monovalen [...] Betsy Piedra Mother Alive Paternal Grandfather Bucky Rowely Social History Tobacco Use Types Packs/Day Years [...] on file Legal Sex Female 10:01 AM WORK FROM HOME Gender Identity Female 03/15/2023 7:53 PM WORK FROM HOME Sexual Orientation Straight 03/21/2024 3: 12 PM WORK FROM HOME Occupation Industry Job Start Date Job End [...] Comments Blood Pressure 124/78 05/15/2024 3:48 PM WORK FROM HOME Pulse 91 05/15/2024 3:48 PM WORK FROM HOME Temperature 36.3 C (97.4 F) 05/15/2024 3:48 PM WORK FROM HOME Respiratory Rate 20 05/15/2024 3:48 PM WORK FROM HOME Oxygen Saturation 99% 05/15/2024 3:48 PM WORK FROM HOME Inhaled Oxygen Concentration - - Weight 102 kg (224 lb 12.8 oz) 05/15/2024 3:48 P M WORK FROM HOME Height 162.6 cm (5' 4.02) 05/15/2024 3:48 PM CS T Body Mass Index 38.57 05/15/2024 3:48 PM WORK FROM HOME Plan of Treatment Health Maintenance Due Date Last Done Comments Hepatitis C Screening 1985 Hepatitis B Screening 2003 DTaP/Tdap/Td Vaccine (2 - Td or Tdap) 09/16/2020 09/16/2010 Cervical Cancer Screening 12/12/2021 12/12/2020 Covid-19 Vaccine ( season) 2024 02/27/2022, 2021, 07/17/2020 Influenza Vaccine (#1) 2025 Depression Screening 05/15/2025 05/15/2024, 03/21/2024, 03/16/2023, Additional history exists Regular Well Visit/Exam 18-64 05/15/2025 05/15/2024, 01/06/2024, 12/24/2022, Additional history exists HPV Vaccines Completed 03/11/2011, 11/06, 09/16/2010 Pneumococcal vaccine <65 Aged Out No longer eligible based on patient's age to complete this topic Varicella Vaccines Discontinued Procedures Procedure Name Priority Date/Time Associated Diagnosis Comments SCAN - LABS 09/17/2024 IMAGING PAP AND HPV MRNA E6/E7 Routine 12/12/2020 12:00 AM CDT from Last 3 Months or Most Recently Relevant to Health Maintenance Results * SCAN - LABS (09/17/2024) us Provider Scanning Edited Result - Final * Imaging Pap and HPV mRNA E6/E7 (12/12/2020 12:00 AM CDT) CLINICAL INFORMATION: [facility] Comment:Routine exam LMP [facility] Comment:11/22/20 Previous Pap [facility] Comment:YES Prev. Bx [facility] Comment:INFORMATION NOT PROV IDED SOURCE: [facility] Comment:Cervix, Endocervix Pap, specimen adequacy [facility] Comment: Satisfactory for evaluation. Endocervical/transformation zone component absent. HPV interp [facility] Comment:Negative for intraep ithelial lesion or malignancy. COMMENTS [facility] Comment: This Pap test has been evaluated with computer assisted technology. Instructor Ballroom Dancing Kiran [facility] Comment: BEF, CT(ASCP) CT screening location: [place] [address] Administration MICHAEL Hicks [id number] [facility] Comment: EXPLANATORY NOTE: The Pap is [...] High Risk E6/E7 Not Detected Not Detected [facility] Comment: Methodology: Sales Engineer Account Manager-Mediated Amplification This assay detects E6/E7 viral messenger RNA (mRNA) from 14 high-risk HPV types (16,18,31,33,35,39,45,51,52,56,58,59,66,68). The analytical performance characteristics of this assay have been determined by [facility]. The modifications have not been cleared or approved by the FDA. This assay has been validated pursuant to the CLIA regulations and is used for clinical purposes. For additional information, please refer to http://education.[employer]/faq/FDA271b7 (This link if provided for information/ educational purposes only.) 12/12/2020 12/15/2020 11: 00 AM CDT Narrative [facility] - 12/16/2020 1:00 PM CDT FASTING: UNKNOWN Hanh Ivan MD LAB PATHOLOGY ORDERAB LES Final Result [place] [address] Administration MICHAEL Carlson [phone] [facility] [address] [address] [phone] from Last 3 Months or Most Recently Relevant to Health Maintenance Insurance [facility] H[facility]/PPO Address: [address] [place] [address] [facility] CHOICE PLUS COMMERCIAL GENERIC [facility] CHOICE PLUS Care Teams Mortuary Operations Manager Relationship Specialty Start Date End Date Tevin Jarvis MD [address] [place] [address] PCP - General Family Medicine 03/11/20
--- OUTSIDE RECORDS SUMMARY | 2024-11-19 15:18 | XMS_ITS | Referral Summary ---
Author Organization [facility] [employer] Address [address] [place] [address] Phone Care Team Providers Care Tattoo And Body Artist Name Role Phone Tevin Jarvis MD Primary Care Provider [phone] Allergies No known active allergies Medications sertraline [...] 05/15/2024 Assessment & Plan (05/15/2024 4:13 PM STRUCTURAL BIOLOGIST): In regard to health maintenance, Mammogram utd [...] healthier, we can set up appointment with validation manager/mold cleaner. Have an active lifestyle, strive for 30 [...] 05/12/2023 Assessment & Plan (05/15/2024 4:34 PM STRUCTURAL BIOLOGIST): Improving with clobetasol, tacrolimus. Continue following with Dermatology. Assessment & Plan (05/12/2023 3:24 PM STRUCTURAL BIOLOGIST): Will initiate Medrol Dosepak and also send [...] 03/16/2023 Assessment & Plan (03/21/2024 3:42 PM STRUCTURAL BIOLOGIST): Very significantly shrunk, as per ultrasound done today Follow-up in 2 3 years recommended Update TSH Assessment & Plan (05/12/2023 3:23 PM STRUCTURAL BIOLOGIST): Benign biopsy. Monitor for any changes. Continue following with endocrinology. Red flags reviewed. Assessment & Plan (03/16/2023 3:52 PM STRUCTURAL BIOLOGIST): I looked at Mrs. Albarran thyroid under [...] 04/14/2021 Assessment & Plan (04/14/2021 5:39 PM STRUCTURAL BIOLOGIST): Discussed healthy diet and importance of regular physical activity. Strain of groin, right, initial encounter 2020 Assessment & Plan (04/14/2021 5:38 PM STRUCTURAL BIOLOGIST): Pain is mild, no abnormal findings on exam. Will continue to monitor. Patient agreeable to watchful waiting, will notify office if pain worsens or does not improve, will plan for US. Encounter for screening for lipid disorder 04/14 Assessment & Plan (04/14/2021 5:40 PM STRUCTURAL BIOLOGIST): Will check fasting labs. Anxiety disorder 12/12/2020 Assessment & Plan (05/12/2023 3:23 PM STRUCTURAL BIOLOGIST): Reports currently stable without medication treatment. Will continue to monitor. Assessment & Plan (04/14/2021 5:40 PM STRUCTURAL BIOLOGIST): Worsening; sertraline increased. 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 Not on file Not on file Last Filed Vital Signs Vital Sign Reading Time Taken Comments Blood Pressure 124/78 05/15/2024 3:48 PM STRUCTURAL BIOLOGIST Pulse 91 05/15/2024 3:48 PM STRUCTURAL BIOLOGIST Temperature 36.3 C (97.4 F) 05/15/2024 3:48 PM STRUCTURAL BIOLOGIST Respiratory Rate 20 05/15/2024 3:48 PM STRUCTURAL BIOLOGIST Oxygen Saturation 99% 05/15/2024 3:48 PM STRUCTURAL BIOLOGIST Inhaled Oxygen Concentration - - Weight 102 kg (224 lb 12.8 oz) 05/15/2024 3:48 P M STRUCTURAL BIOLOGIST Height 162.6 cm (5' 4.02) 05/15/2024 3:48 PM CS T Body Mass Index 38.57 05/15/2024 3:48 PM STRUCTURAL BIOLOGIST Plan of Treatment Not on file Procedures [...] E6/E7 (12/12/2020 12:00 AM CDT) CLINICAL INFORMATION: lettrs [facility] Comment:Routine exam LMP zuuka![facility] Comment:11/22/20 Previous Pap lettr[facility] Comment:YES Prev. Bx lettrs [facility] Comment:INFORMATION NOT PROV IDED SOURCE: lettrs [facility] Comment:Cervix, Endocervix Pap, specimen adequacy [facility] Comment: Satisfactory for evaluation. Endocervical/transformation zone component absent. HPV interp [facility] Comment:Negative for intraep ithelial lesion or malignancy. COMMENTS [facility] Comment: This Pap test has been evaluated with computer assisted technology. Lead Customer Service Representative Kiran [facility] Comment: BEF, CT(ASCP) CT screening location: [place] [address] Administration MICHAEL Hicks [id number] [facility] Comment: EXPLANATORY NOTE: The Pap [...] High Risk E6/E7 Not Detected Not Detected [facility] [employer] [place] Comment: Methodology: Fly Setter-Mediated Amplification This assay detects E6/E7 viral messenger RNA (mRNA) from 14 high-risk HPV types (16,18,31,33,35,39,45,51,52,56,58,59,66,68). The analytical performance characteristics of this assay have been determined by lettrs. The modifications have not been cleared or approved by the FDA. This assay has been validated pursuant to the CLIA regulations and is used for clinical purposes. For additional information, please refer to http://education.Voxy.YapTime/faq/TBU598h6 (This link if provided for information/ educational purposes only.) 12/12/2020 12/15/2020 11: 00 AM CDT Narrative [facility] [place] - 12/16/2020 1:00 PM CDT FASTING: UNKNOWN us Hanh Ivan MD LAB PATHOLOGY ORDERAB LES Final Result [place] [address] [address] MICHAEL [place] [address] [facility] [address] [address] [phone] from Last 3 Months or Most Recently Relevant to Health Maintenance Insurance [employer] [facility] CHOICE [facility] H[facility]/PPO Address: [address] [address] [place] [address] COMMERCIAL GENERIC [facility]/PPO Address: [place] [address] Care Teams Tattoo And Body Artist Relationship Specialty Start Date End Date Tevin Jarvis MD [address] [place] [address] PCP - General Family Medicine 03/11/20
--- OUTSIDE RECORDS SUMMARY | 2024-11-19 15:18 | XMS_ITS | Patient Health Record ---
Author Organization [facility] Address [address] [place] [address] Care Team Providers Care Page Technician Name Role Phone Mariaa FRY, Beata Primary Care Provider Betina CarrollCarisa Unavailable [phone] Allergies No Known Allergies Reason For Referral [...] DO NOT USE- use ins id# [id number] Lana Albarran Self - patient is the insured Medical (General) History Surgical History Surgery Date(Month/Year) [place] Tooth Extraction; 2021-06-09
[2024-11-19 15:25] VITALS: BP 144/84; PULSE 78; RESP 16; TEMP 37.2; O2SAT 100
--- NOTE | 2024-11-19 15:36 | ED_ITS ---
HPI - URI/Sore Throat General Chief Complaint: Upper Respiratory Infection Stated Complaint: poss sinus infection Time Seen by Provider: 11/19/24 15:30 Source: patient and RN notes reviewed Mode of arrival: ambulatory Limitations: no limitations History of Present Illness HPI Narrative: 39-year-old female presents Express Care complaining of upper respiratory symptoms for approximately 5 days. Patient reports having sore throat, cough, sinus congestion, nasal drainage. Patient said she started to feel better over the weekend woke up this morning was worsening symptoms. Patient says she has worked in sinus pressure, mucopurulent nasal drainage, ear pain, worsening cough, feels chest congestion as well. Patient denies any shortness of breath, chest pain, nausea, vomiting, diarrhea, body aches, chills, or other symptoms. Patient has been using Afrin the last couple days where the congestion with some relief. Patient to go home COVID test at home that was negative. Related Data Home Medications ?Medication ?Instructions ?Recorded ?Confirmed ?Last Taken ?Type buspirone 5 mg tablet mg 09/17/24 Unknown History clobetasol 0.05 % topical cream topical 09/17/24 Unknown History spironolactone 100 mg tablet mg 09/17/24 Unknown History Allergies Allergy/AdvReac Type Severity Reaction Status Date / Time No Known Allergies Allergy Verified 07/15/22 13:22 Review of Systems Review of Systems: CONSTITUTIONAL: Denies fever, chills, body aches, or sweats. EYES: Denies visual changes, redness, or discharge. ENT: Positive congestion, sore throat, or otalgia. Negative for rhinorrhea. CARDIOVASCULAR: Denies chest pain, palpitations, or edema. RESPIRATORY: Positive for cough. Negative for dyspnea or wheezing. GASTROINTESTINAL: Denies abdominal pain, nausea, vomiting, or diarrhea. GENITOURINARY: Denies dysuria or hematuria. SKIN: Denies rash or itching. MUSCULOSKELETAL: Denies back pain, joint pain, or myalgia. NEUROLOGIC: Denies headache, numbness, or weakness. PSYCHIATRIC: Denies anxiety or depression. All other systems reviewed are negative, except as documented in HPI. [facility] Past Medical History Medical History Benign thyroid cyst Social History Social History (Reviewed 11/19/24 @ 15:38 by SO Buchanan Smoking status: Never smoker Alcohol intake: current Alcohol use details: social Substance use type: does not use Living arrangements: with family Gender identity (if verbalized by the patient): Female Comments At the time of my signature, I reviewed and agree with the nursing past medical, surgical, social, and family history. There is no relevant family history pertinent to the patient complaint. Exam Narrative: GENERAL: This is a well-nourished, well-developed adult, in no apparent distress. They are non ill-appearing, nontoxic appearing. HEAD: normocephalic, atraumatic. EYES: Sclera clear/white. Vision is grossly intact. Conjunctiva normal bilaterally. Extraocular movements intact. EARS: External ears normal, auditory canals clear and without drainage, TMs without erythema or perforation. Hearing grossly intact. NOSE: External nose normal with no obvious nasal discharge, nasal turbinates erythematous, no rhinorrhea. Maxillary and frontal sinus tenderness to palpation. THROAT: Mucous membranes moist, posterior pharynx edematous, without redness or exudate. Tonsils 2+ erythematous. Uvula is midline. Postnasal drip present. NECK: Neck supple, non-tender without lymphadenopathy, masses or thyromegaly. CARDIOVASCULAR: Regular rate and rhythm without murmurs, gallops, or rubs. RESPIRATORY: Clear to auscultation. Breath sounds equal bilaterally. No wheezes, rales, or rhonchi. Respiratory rate normal, respiratory effort nonlabored, no respiratory distress SKIN: warm, Dry, intact with no suspicious lesions or rash, good texture and turgor. NEURO: awake, alert, and oriented to person, place and time. There were no obvious focal neurologic abnormalities. EXTREMITIES: No joint tenderness, effusion, or edema noted. BACK: Nontender without deformity. Course Course Emergency Course: Portions of this record may have been created with voice recognition software Level of Care: Express Care Visit Vital Signs Vital signs: Vital Signs Temperature 99 F 11/19/24 15: Pulse Rate 78 11/19/24 15:25 Respiratory Rate 16 11/19/24 15: Blood Pressure 144/84 H 11/19/24 15:25 Pulse Oximetry 100 11/19/24 15:25 Oxygen Delivery Room Air 11/19/24 15:25 Temperature 99 F 11/19/24 15:25 Pulse Rate 78 07/14/25 15:25 Respiratory Rate 16 11/19/24 15:25 Blood Pressure 144/84 H 11/19/24 15:25 Pulse Oximetry 100 11/19/24 15:25 Oxygen Delivery Room Air 11/19/24 15:25 MDM - URI/Sore Throat MDM Narrative Medical decision making narrative: Given patient's suddenly worsen symptoms is likely she has developed a bacterial sinusitis. Will go ahead and treat her with Augmentin. Discussed physical exam findings. Advised supportive measures and signs/symptoms to go to the ER. Pt is appropriate for outpt treatment and f/u. Differential Diagnosis Differential diagnosis: Likely upper respiratory infection, sinusitis and viral infection Discharge Plan Discharge Clinical Impression: Sinusitis Qualifiers: Sinusitis location: unspecified location Chronicity: acute Recurrence: non- recurrent Qualified Code(s): J01.90 - Acute sinusitis, unspecified Patient Disposition: Home Condition: Stable Instructions: Antibiotic Form, Sinusitis (ED) Additional Instructions: Take the antibiotics as directed and complete the course even if you start to feel better. You may use a Neti pot saline rinse 3 times a day with lukewarm distilled water Continue to take Tylenol or Motrin for pain. Use a humidifier or vaporizer at night. Drink plenty of water. 8-10 glasses per day. Use flonase 2 times per day for 5 days then as needed Take mucinex 2 times per day and be sure to take with 8oz of water. Follow up with Primary provider in 3-5 days Please go to the ER if he develops any difficulty breathing, worsening symptoms, or any other concerns Patient Language: Wallisian Prescriptions: New amoxicillin-pot clavulanate 875-125 mg tablet 1 tablet PO Q12H 7 Days Qty: 14 0RF No Action buspirone 5 mg tablet spironolactone 100 mg tablet clobetasol 0.05 % cream TOPICAL Follow-up/Referrals: Harms,Tevin Alvarez M.D. [Primary Care Provider] - Time of Disposition: 15:36
== END 2024-11-19 15:41 | disposition home or self-care (01) ==
PROVIDERS: PCP Family Medicine
DX: J01.90 Acute sinusitis, unspecified (principal)
CPT/HCPCS: 99213; G0463